=== PATIENT | female | born 1965 | race Caucasian/White ===

== ENCOUNTER 2023-05-03 18:10 | Emergency (ER) | payer BC ==
[~2023-05-03] VITALS: Ht 167.6 cm; Wt 79.8 kg
[2023-05-03 18:39] VITALS: BP_SYST 91; PULSE 88; RESP 16; TEMP 97.8; O2SAT 98
--- NOTE | 2023-05-03 19:00 | NUR ---
AT THE BEDSIDE
--- NOTE | 2023-05-03 19:23 | NUR ---
PT WAITING FOR XRAY
--- NOTE | 2023-05-03 20:05 | NUR ---
ULTRASOUND AT THE BEDSIDE
--- NOTE | 2023-05-03 20:30 | NUR ---
X RAY AT THE BEDSIDE
[2023-05-03] MEDS ORDERED: NAPR-688 PO (20:59)
[2023-05-03 21:42] VITALS: BP_SYST 99; PULSE 88; RESP 16; TEMP 97.8; O2SAT 98
--- NOTE | 2023-05-03 21:44 | NUR ---
Patient given written and verbal discharge instructions and verbalizes understanding. ER MD discussed with patient the results and treatment provided. Patient in stable condition. ID arm band removed. IV catheter removed intact and dressing applied, no active bleeding. Rx of NAPROXEN given. Patient educated on pain management and to follow up with PMD. Pain Scale 0/10. Opportunity for questions provided and answered. Medication side effect fact sheet provided.
== END 2023-05-03 21:44 | disposition home or self-care (01) ==
LOC: SED 18:10
DX: M79.661 Pain in right lower leg (principal); M25.561 Pain in right knee; Z79.899 Other long term (current) drug therapy
CPT/HCPCS: 73564; 93971; 99284